=== PATIENT | female | born 1940 | race Caucasian/White ===

== ENCOUNTER 2019-04-29 12:37 | Emergency (ER) | payer OTHER, BC ==
[~2019-04-29] VITALS: Ht 170.2 cm; Wt 57.1 kg
[2019-04-29] MEDS ORDERED: PAXIL10 MG PO (13:20)
[2019-04-29 14:25] VITALS: BP 169/76
== END 2019-04-29 15:11 | disposition home or self-care (01) ==
LOC: ER 12:37
DX: S01.81XA Laceration without foreign body of other part of head, initial encounter (principal); S80.01XA Contusion of right knee, initial encounter; Z90.710 Acquired absence of both cervix and uterus; W18.39XA Other fall on same level, initial encounter; Y93.89 Activity, other specified; Y92.89 Other specified places as the place of occurrence of the external cause; Y99.8 Other external cause status